=== PATIENT | female | born 1950 | race Caucasian/White ===

== ENCOUNTER 2023-05-10 10:56 | Outpatient (REF) | payer OTHER, SELFPAY ==
[2023-05-10 13:19] LABS: Folate 7.8 ng/mL (> or = 4.0); Vitamin B12 399 pg/mL (200-900)
== END 2023-05-10 10:57 | disposition home or self-care (01) ==
LOC: HO.LAB 10:56
PROVIDERS: Psychiatry & Neurology Neurology; PCP Internal Medicine; Visit Provider Internal Medicine
DX: G31.84 Mild cognitive impairment of uncertain or unknown etiology (principal)
CPT/HCPCS: 36415; 82607; 82746

== ENCOUNTER 2023-06-09 09:26 | Outpatient (REF) | payer OTHER, SELFPAY ==
[2023-06-09 11:16] LABS: C Reactive Protein 0.39 mg/dL (< or = 0.50)
[2023-06-09 12:43] LABS: Erythrocyte Sedimentation Rate 7 MM/HR (0-20)
== END 2023-06-09 09:27 | disposition home or self-care (01) ==
LOC: HO.LAB 09:26
PROVIDERS: Visit Provider Registered Nurse
DX: G43.909 Migraine, unspecified, not intractable, without status migrainosus (principal)
CPT/HCPCS: 36415; 85652; 86140

== ENCOUNTER 2023-09-07 10:56 | Outpatient (REF) | payer OTHER, SELFPAY ==
[2023-09-07 12:00] LABS: Estimated Average Glucose 120 mg/dL; Hemoglobin A1c % 5.8 % (<6.0)
[2023-09-09 17:53] LABS: Lyme Abs Screen <0.90 index
== END 2023-09-07 10:57 | disposition home or self-care (01) ==
LOC: HO.LAB 10:56
PROVIDERS: PCP Internal Medicine; Visit Provider Registered Nurse
DX: G51.0 Bell's palsy (principal)
CPT/HCPCS: 36415; 83036; 86617; 86618